=== PATIENT | female | born 1975 | race Caucasian/White ===

== ENCOUNTER 2019-04-08 10:04 | Emergency (ER) | payer BC ==
[~2019-04-08] VITALS: Ht 160 cm; Wt 80.0 kg
[~2019-04-08 10:04] MED LIST: BENADRYL 50MG C50 MG PO; LEVOTHYROXINE100 MCG PO; MEDDOSEPAK PO; METFORMIN500 M1 PO; PEPCID20 MG PO
[2019-04-08] MEDS ORDERED: SOLIQUA 100/331 INJ IJ (10:52)
[2019-04-08] MEDS ORDERED: LORATADINE10 M3 (10:52)
[2019-04-08] MEDS ORDERED: ALBUTERO1 IN (10:53)
[2019-04-08] MEDS ORDERED: PROTONIX40 M4 PO (10:53)
[2019-04-08] MEDS ORDERED: PRAVASTATIN20 MG PO (10:53)
[2019-04-08] MEDS ORDERED: MONTELUKAST SOD10 MG PO (10:54)
[2019-04-08] MEDS ORDERED: PROAIR HFA108 MCG/AC (10:54)
[2019-04-08] MEDS ORDERED: OZEMPIC2 MG/1.5 M (10:54)
[2019-04-08] MEDS ORDERED: AMARYL2 MG PO (10:54)
[2019-04-08] MEDS ORDERED: FLOVENT HF220 MCG/AC (10:55)
[2019-04-08 11:17] LABS: HEMOGLOBIN 14.9 g/dl (12.0-16.0); IMMATURE GRANULOCYTES 0.7 % (0.0-5.0); MEAN CORPUSCULAR HGB 27.5 pG CALC (26.0-32.0); MEAN CORPUSCULAR HGB CONC 33.1 g/L CALC (32.0-36.0); NEUT# 14.85 thou/uL (2.00-7.15); RED BLOOD COUNT 5.42 mill/uL (4.20-5.60); RED CELL DISTRI WIDTH 12.8 % (11.5-15.5)
[2019-04-08 11:35] LABS: ALBUMIN 4.7 g/dL (3.2-5.0); ALKALINE PHOSPHATASE 173 u/l (38-126); ANION GAP 20 (6-22 (CALC)); BUN 19 mg/dL (7-17); BUN/CREATININE RATIO 25 (12-20 (CALC)); CARBON DIOXIDE 23 mmol/l (22-30); CHLORIDE 98 mmol/l (95-108); CREATININE 0.8 mg/dL (0.5-1.0); GFR > 60 ML/MIN (>=60 (CALC)); GFR FOR AFR.AMER. > 60 ML/MIN (>=60 (CALC)); LIPASE 85 u/l (23-300); POTASSIUM 4.9 mmol/l (3.5-5.1); SODIUM 136 mmol/l (137-146); TOTAL PROTEIN 9.2 g/dL (6.3-8.2)
[2019-04-08 11:42] LABS: BILIRUBIN, TOTAL 1.1 mg/dL (0.0-1.4); SGOT/AST 39 u/l (14-36)
[2019-04-08 13:25] LABS: URINE BILIRUBIN - DIPSTICK NEGATIVE (NEGATIVE); URINE BLOOD DIPSTICK NEGATIVE (NEGATIVE); URINE COLOR YELLOW; URINE GLUCOSE - DIPSTICK >=1000 mg/dL (NEGATIVE); URINE KETONE TRACE mg/dL (NEGATIVE); URINE LEUK ESTERASE NEGATIVE (NEGATIVE); URINE NITRITE - DIPSTICK NEGATIVE (Negative); URINE PH 5.5 (4.5-8.0); URINE PROTEIN - DIPSTICK NEGATIVE (NEG-TRACE); URINE SPECIFIC GRAVITY <=1.005
[2019-04-08] MEDS ORDERED: ONDANSETRON4 MG PO (13:35)
[2019-04-08 13:40] VITALS: BP 97/59
== END 2019-04-08 13:47 | disposition home or self-care (01) | DRG 392 ==
LOC: ED 10:04
PROVIDERS: Family Medicine
DX: K52.9 Noninfective gastroenteritis and colitis, unspecified (principal)
CPT/HCPCS: Q9967

== ENCOUNTER 2020-11-25 17:25 | Emergency (ER) | payer BC ==
[~2020-11-25] VITALS: Ht 160 cm; Wt 78.0 kg
[~2020-11-25 17:25] MED LIST changes: +ALBUTERO1 IN; +AMARYL2 MG PO; +FLOVENT HF220 MCG/AC; +LORATADINE10 M3; +MONTELUKAST SOD10 MG PO; +ONDANSETRON4 MG PO; +OZEMPIC2 MG/1.5 M; +PRAVASTATIN20 MG PO; +PROAIR HFA108 MCG/AC; +PROTONIX40 M4 PO; +SOLIQUA 100/331 INJ IJ
[2020-11-25] MEDS ORDERED: ASPIRIN LOW DOS81 M1 PO (18:22)
[2020-11-25] MEDS ORDERED: TRESIBA FL100 UNIT/M SC (18:23)
[2020-11-25] MEDS ORDERED: LEVOTHYROXIN137 MCG PO (18:24)
[2020-11-25] MEDS ORDERED: DULOXETINE HCL60 MG PO (18:24)
[2020-11-25] MEDS ORDERED: PRAVASTATIN SOD20 MG PO (18:25)
[2020-11-25] MEDS ORDERED: PANTOPRAZOLE SO40 M1 PO (18:25)
[2020-11-25] MEDS ORDERED: VITAMIN D50000 UNIT PO (18:25)
[2020-11-25] MEDS ORDERED: LORATADINE10 M4 PO (18:26)
[2020-11-25] MEDS ORDERED: FARXIGA10 MG PO (18:26)
[2020-11-25] MEDS ORDERED: KEFLEX500 MG PO (18:48)
[2020-11-25 19:00] VITALS: BP 123/90
== END 2020-11-25 19:00 | disposition home or self-care (01) | DRG 605 ==
LOC: ED 17:25
DX: S81.051A Open bite, right knee, initial encounter (principal); E11.9 Type 2 diabetes mellitus without complications; W54.0XXA Bitten by dog, initial encounter; Y93.89 Activity, other specified; Y92.009 Unspecified place in unspecified non-institutional (private) residence as the place of occurrence of the external cause; Y99.0 Civilian activity done for income or pay; Z79.4 Long term (current) use of insulin